=== PATIENT | male | born 1940 | race Caucasian/White ===

== ENCOUNTER 2018-03-16 20:01 | Inpatient (IN) | payer OTHER ==
[~2018-03-16] VITALS: Ht 185.4 cm; Wt 83.6 kg
[~2018-03-16 20:01] MED LIST: ADULT LOW DOSE81 M1 PO; Aspirin E.C. PO; CHLORDIAZEPOXI1 EAC1 PO; Centrum Silver Chewa PO; Chronulac,Cephulac,E PO; DILAUDID4 MG PO; Dilaudid PO; ENDOCET 5-3251 EACH PO; Ecotrin PO; FIBER THERAPY0.52 GM PO; Flonase BOTH NARES; LIPITOR80 MG PO; LOMOTIL2.5 MG/5 M PO; LOPRESSOR25 MG PO; Mylicon,Mylanta Gas, PO; NITROSTAT0.4 MG SL; Ocean Nasal 0.65% BOTH NARES; Osteo-Biflex,Flex-A- PO; PLAVIX75 MG PO; PRAVACHOL20 MG PO; Protonix PO; QUESTRAN4 GM/PACKE PO; TOPROL XL50 MG PO; Tylenol Arthritis Ex PO; Zestril,Prinivil PO; [UNRECOGNIZED DRUG - SUPPLY]
[2018-03-16 20:45] LABS: HEMATOCRIT 46.6 % (38.0-50.0); HEMOGLOBIN 15.8 G/DL (12.5-16.6); MCH 28.5 PG (29.0-34.0); MCHC 33.9 G/DL (30.0-36.0); PLATELET COUNT 204 K/uL (156-360); RBC DIS.WIDTH-CV 13.7 % (11.8-14.6); RBC DIS.WIDTH-SD 42.3 % (39-53); RED BLOOD COUNT 5.55 M/uL (4.00-5.50); WHITE BLOOD COUNT 6.1 K/uL (4.1-10.2)
[2018-03-16 20:56] LABS: CHLORIDE 106 mEq/L (99-109); POTASSIUM 4.7 mEq/L (3.7-5.4); SODIUM 138 mEq/L (136-147)
[2018-03-16 20:57] LABS: GLUCOSE 113 mg/dL (70-99)
[2018-03-16 21:01] LABS: CREATININE 1.2 mg/dL (0.6-1.3); GFR ESTIMATE (CALCULATED) > 59 mL/min/ (58.99-99999)
[2018-03-16 21:02] LABS: UREA NITROGEN (BUN) 21 mg/dL (9-23)
[2018-03-16] MEDS ORDERED: ARTIFICIAL TEAR1510 BOTH EYES (22:43)
[2018-03-16] MEDS ORDERED: ROXICODONE5 MG PO (22:44)
[2018-03-16] MEDS ORDERED: BENADRYL25 MG PO ×2 (22:44)
[2018-03-16] MEDS ORDERED: COREG12.5 M1 PO (22:45)
[2018-03-16] MEDS ORDERED: LO-DOSE ASPIRIN81 M1 PO (22:45)
[2018-03-16] MEDS ORDERED: NEURONTIN300 MG PO (22:45)
[2018-03-16] MEDS ORDERED: COLACE100 MG PO (22:46)
[2018-03-16] MEDS ORDERED: FLOMAX0.4 MG PO (22:46)
[2018-03-16] MEDS ORDERED: SENNA-S TABLET1 EACH PO (22:46)
[2018-03-16] MEDS ORDERED: MOBIC7.5 MG PO (22:46)
[2018-03-16] MEDS ORDERED: TYLENOL ARTHRI650 MG PO (22:50)
[2018-03-16] MEDS ORDERED: [UNRECOGNIZED DRUG - OTHER] PO (22:50)
[2018-03-16] MEDS ORDERED: MIRALAX255 GM PO (22:51)
[2018-03-17 00:38] LABS: INTER. NORMALIZED RATIO 1.1
[2018-03-17 00:45] LABS: ALBUMIN 3.9 g/dL (3.2-4.8)
[2018-03-17 00:48] LABS: TOTAL PROTEIN 6.3 g/dL (6.4-8.3)
[2018-03-17 00:50] LABS: TOTAL BILIRUBIN 0.3 mg/dL (0.0-1.0)
[2018-03-17 00:51] LABS: ALKALINE PHOSPHATASE 101 IU/L (3-129)
[2018-03-17 00:54] LABS: ALT (GPT) 19 IU/L (3-49); AST (GOT) 15 IU/L (2-34); DIRECT BILIRUBIN 0.1 mg/dL (0.0-0.3)
[2018-03-17 02:30] VITALS: BP 193/96
[2018-03-17 05:14] LABS: HEMATOCRIT 43.7 % (38.0-50.0); HEMOGLOBIN 14.3 G/DL (12.5-16.6); MCH 27.6 PG (29.0-34.0); MCHC 32.7 G/DL (30.0-36.0); MCV 84.4 FL (86-99); PLATELET COUNT 187 K/uL (156-360); RBC DIS.WIDTH-CV 13.8 % (11.8-14.6); RBC DIS.WIDTH-SD 42.7 % (39-53); RED BLOOD COUNT 5.18 M/uL (4.00-5.50); WHITE BLOOD COUNT 6.6 K/uL (4.1-10.2)
[2018-03-17 05:40] LABS: CHLORIDE 107 MEQ/L (99-109); CREATININE 1.1 MG/DL (0.6-1.3); GFR ESTIMATE (CALCULATED) > 59 mL/min/ (58.99-99999); GLUCOSE 117 mg/dL (70-99); SODIUM 141 MEQ/L (136-147); UREA NITROGEN (BUN) 17 mg/dL (9-23)
[2018-03-17 07:13] VITALS: BP 90/56
[2018-03-17 08:27] VITALS: BP 157/83
[2018-03-17 12:06] LABS: HEMATOCRIT 42.6 % (38.0-50.0); HEMOGLOBIN 14.1 G/DL (12.5-16.6); MCV 84.2 FL (86-99)
[2018-03-17 12:20] VITALS: BP 163/90
[2018-03-17 19:23] VITALS: BP 136/77
[2018-03-17 19:52] LABS: HEMATOCRIT 46.8 % (38.0-50.0); HEMOGLOBIN 15.2 G/DL (12.5-16.6); MCV 85.4 FL (86-99)
[2018-03-17 23:40] VITALS: BP 118/95
[2018-03-18 00:56] LABS: HEMATOCRIT 45.9 % (38.0-50.0); HEMOGLOBIN 15.5 G/DL (12.5-16.6); MCV 84.8 FL (86-99)
[2018-03-18 05:04] LABS: BASOPHIL (%) 0.2 % (0-1); EOSINOPHIL (%) 2.1 % (0-5); EOSINOPHIL COUNT 0.1 K/uL (0-0.3); HEMATOCRIT 40.9 % (38.0-50.0); HEMOGLOBIN 13.8 G/DL (12.5-16.6); IMMATURE GRANULOCYTE (%) 0.3 % (0.0-0.7); LYMPHOCYTE (%) 34.2 % (15-42); LYMPHOCYTE COUNT 2.2 K/uL (1.0-2.8); MCH 28.6 PG (29.0-34.0); MCHC 33.7 G/DL (30.0-36.0); MCV 84.9 FL (86-99); MONOCYTE COUNT 0.7 K/uL (0-0.8); NEUTROPHIL (%) 52.2 % (45-76); NEUTROPHIL COUNT 3.3 K/uL (1.8-6.4); PLATELET COUNT 168 K/uL (156-360); RBC DIS.WIDTH-CV 13.8 % (11.8-14.6); RBC DIS.WIDTH-SD 42.6 % (39-53); RED BLOOD COUNT 4.82 M/uL (4.00-5.50); WHITE BLOOD COUNT 6.3 K/uL (4.1-10.2)
[2018-03-18 05:13] LABS: ALBUMIN 3.6 g/dL (3.2-4.8)
[2018-03-18 05:14] LABS: CHLORIDE 107 mEq/L (99-109); POTASSIUM 4.2 mEq/L (3.7-5.4); SODIUM 141 mEq/L (136-147)
[2018-03-18 05:16] LABS: GLUCOSE 97 mg/dL (70-99)
[2018-03-18 05:19] LABS: CREATININE 1.1 mg/dL (0.6-1.3); GFR ESTIMATE (CALCULATED) > 59 mL/min/ (58.99-99999); PHOSPHORUS 2.8 mg/dL (2.5-4.9)
[2018-03-18 05:20] LABS: UREA NITROGEN (BUN) 14 mg/dL (9-23)
[2018-03-18 06:28] VITALS: BP 134/95
[2018-03-18 09:21] VITALS: BP 136/75
[2018-03-18 13:34] VITALS: BP 164/94
[2018-03-18 19:33] VITALS: BP 137/81
[2018-03-18 23:36] VITALS: BP 115/66
[2018-03-19 06:02] LABS: HEMATOCRIT 41.1 % (38.0-50.0); HEMOGLOBIN 13.3 G/DL (12.5-16.6); MCH 27.5 PG (29.0-34.0); MCHC 32.4 G/DL (30.0-36.0); MCV 84.9 FL (86-99); PLATELET COUNT 163 K/uL (156-360); RBC DIS.WIDTH-SD 43.1 % (39-53); RED BLOOD COUNT 4.84 M/uL (4.00-5.50); WHITE BLOOD COUNT 7.9 K/uL (4.1-10.2)
[2018-03-19 07:17] VITALS: BP 162/72
== END 2018-03-19 16:30 | disposition home or self-care (01) | DRG 379 ==
LOC: EME 20:01 → 4EAST 23:34 → 5SOUTH 23:34 → EDOF 23:34 → ENRESERV 23:37 → 4EAST 03-17 02:18 → ENRESERV 03-18 10:09 → 4EAST 03-18 16:49 → 5SOUTH 03-18 18:27
PROVIDERS: Hospitalist; Internal Medicine Gastroenterology
DX: K57.31 Diverticulosis of large intestine without perforation or abscess with bleeding (principal); D12.0 Benign neoplasm of cecum; K64.8 Other hemorrhoids; I10 Essential (primary) hypertension; I25.10 Atherosclerotic heart disease of native coronary artery without angina pectoris; K58.2 Mixed irritable bowel syndrome; K59.03 Drug induced constipation; T40.605A Adverse effect of unspecified narcotics, initial encounter; K29.70 Gastritis, unspecified, without bleeding; G89.29 Other chronic pain; M54.30 Sciatica, unspecified side; N40.0 Benign prostatic hyperplasia without lower urinary tract symptoms; E78.5 Hyperlipidemia, unspecified; I25.2 Old myocardial infarction; M19.90 Unspecified osteoarthritis, unspecified site; F32.9 Major depressive disorder, single episode, unspecified; F41.9 Anxiety disorder, unspecified; Z79.82 Long term (current) use of aspirin; Z87.891 Personal history of nicotine dependence; Z95.5 Presence of coronary angioplasty implant and graft
CPT/HCPCS: 74177; 80048; 80069; 80076; 83605; 85014; 85018; 85025; 85027; 85610; 85730; 86850; 86900; 86901; 88305; 99281; 99285; C9113; J7030